=== PATIENT | female | born 1940 | race Caucasian/White ===

== ENCOUNTER 2017-01-20 14:20 | Inpatient (IN) | payer MEDICARE ==
[~2017-01-20] VITALS: Ht 162.6 cm; Wt 76.5 kg
[~2017-01-20 14:20] MED LIST: BAYER CHEWABLE81 MG PO; BIOTIN5 MG PO; CIMETIDINE200 MG PO; CO Q-10100 MG PO; COLACE100 MG PO; COLCRYS0.6 MG PO; HYDROCODONE-APA1 TAB PO; KLOR-CON 1010 MEQ PO; LOFIBRA134 MG PO; MOBIC7.5 MG PO; PRAVASTATIN SOD10 MG PO; PREDNISONE10 MG PO; PREDNISONE5 MG PO; PRILOSEC20 MG PO; PROZAC20 MG PO; VITAMIN B-122500 MCG SL; ZESTRIL40 MG PO; ZIAC 10-6.25 MG1 TAB PO; ZOVIRAX400 MG PO
--- NOTE | 2017-01-20 14:37 | NUR ---
PT RECIEVED TO ROOM. RR RATE EVEN AND UNLABORED. PT C/O GENERALIZED PAIN AT 10. FAMILY AT BEDSIDE. WILL CTM.
[2017-01-20 14:52] VITALS: BP 125/81; BMI 30.9
[2017-01-20 16:10] LABS: BASOPHILS 0.2 % (0-2); EOSINOPHILS 0.2 % (0-7); HEMATOCRIT 39.4 % (36.0-48.0); HEMOGLOBIN 13.3 g/dL (12-16); IMMATURE GRANULOCYTES 0.5 % (0-5); LYMPHOCYTES 12.2 % (15-50); MCH 28.7 pg (26.0-34.0); MCHC 33.8 g/dL (31.0-37.0); MCV 85.1 fL (80.0-100.0); MEAN PLATELET VOLUME 11.2 fL (7.4-10.4); NEUTROPHILS 78.9 % (40-80); PLATELET COUNT 382 10x3/uL (130-400); RBC 4.63 10x6/uL (4.00-5.40); RDW 14.5 % (11.5-14.5)
--- NOTE | 2017-01-20 16:32 | NUR ---
20 GUAGE IV INSERTED INTO RIGHT FOREARM, X1 STICK. DRESSING CLEAN, DRY, AND INTACT.
[2017-01-20 16:35] LABS: ALBUMIN 3.4 g/dL (3.4-5.0); ALKALINE PHOSPHATASE 139 U/L (46-116); ALT (SGPT) 22 U/L (10-68); BILIRUBIN - TOTAL 0.77 mg/dL (0.2-1.3); CALCIUM 9.6 mg/dL (8.5-10.1); CARBON DIOXIDE 31.3 mmol/L (21.0-32.0); CKMB 3.8 U/L (0.0-3.6); CREATINE KINASE 487 UL (21-215); CREATININE - SERUM 1.7 mg/dL (0.6-1.3); MAGNESIUM - SERUM 2.2 mg/dL (1.8-2.4); PROTEIN - SERUM 7.7 g/dL (6.4-8.2); SODIUM 128 mmol/L (136-145); T4 THYROXIN - FREE 1.23 ng/dL (0.76-1.46); THYROID STIMULATING HORMONE 0.62 uIU/mL (0.36-3.74); UREA NITROGEN 39 mg/dL (7-18); eGFR NON AFRICAN AMERICAN 31 mL/min (90-120)
[2017-01-20 16:41] LABS: CALC OSMOLALITY 299 mosm/kg (275-300); TROPONIN-I < 0.017 ng/mL (0.000-0.060)
[2017-01-20 16:45] LABS: GLUCOSE 710 mg/dL (74-106); POTASSIUM - SERUM 2.7 mmol/L (3.5-5.1)
[2017-01-20 16:46] LABS: CHLORIDE - SERUM 84 mmol/L (98-107)
[2017-01-20 16:51] VITALS: BP 111/58
--- NOTE | 2017-01-20 17:15 | NUR ---
CRITICAL LABS REPORTED. GLUCOSE OVER 700, POTASSIUM AT 2.7, CHOLRIDE AT 84. PT NOT SYMPTOMATIC EXPLAINS THAT SHE FEELS A LITTLE DIZZY WHEN SHE LOOKS UP. REPORTED LABS TO TONE YANG AND SHE ORDERED A RE-DRAW. WILL CTM.
--- NOTE | 2017-01-20 17:38 | NUR ---
PTS GLUCOSE RESULTED CH AT 710. I RECHECKED WITH ACCU CHECK BUT SUGAR TOO HIGH TO RESULT. CALLED TONE YUN, LYLY AND REC'D ORDERS FOR STAT REDRAW. PT SITTING UP IN BED EATING AND DENIES ANY WEIRD FEELINGS OR SYMPTOMS AND STATES "I FEEL NORMAL UNLESS I LOOK UP THEN DOWN TOO QUICK I GET DIZZY" NO OTHER SYMPTOMS NOTED. WILL CTM.
[2017-01-20 18:25] LABS: ANION GAP 17.8 mmol/L (8-16); CALCIUM 9.6 mg/dL (8.5-10.1); CREATININE - SERUM 1.5 mg/dL (0.6-1.3)
[2017-01-20 18:27] LABS: POTASSIUM - SERUM 2.8 mmol/L (3.5-5.1)
--- NOTE | 2017-01-20 18:30 | NUR ---
LABS STILL CRITICAL FROM RE-DRAW. GLUCOSE WAS OVER 600 AND K+ WAS 2.8. CONTACTED ROCKET MOTOR TESTER ABOUT LABS AND E-PROTOCOL ORDERED. ORAL POTASSIUM GIVEN, 1/2 NS STARTED AT 100ML/HR, INSULIN TO BE GIVEN WHEN ARRIVED TO UNIT FROM PHARMACY. PT STILL SHOWS NO SYMPTOMS OF HIGH BLOOD SUGAR. DENIES OTHER NEEDS AT THIS TIME. RR EVEN AND UNLABORED, WILL CTM.
[2017-01-20] MEDS ORDERED: OMEPRAZOLE20 M1 PO (18:48)
[2017-01-20] MEDS ORDERED: ZOLOFT50 MG PO (18:48)
[2017-01-20] MEDS ORDERED: LOPID600 MG PO (18:49)
[2017-01-20] MEDS ORDERED: FUROSEMIDE40 MG PO (18:50)
[2017-01-20] MEDS ORDERED: PLAVIX75 MG PO (18:51)
[2017-01-20] MEDS ORDERED: ENULOSE10 G/15 ML (18:51)
[2017-01-20] MEDS ORDERED: NEURONTIN 300300 MG (18:52)
[2017-01-20 19:00] VITALS: BP 123/74
[2017-01-20 19:02] LABS: APPEARANCE CLEAR (CLEAR); BILIRUBIN NEGATIVE (NEGATIVE); COLOR YELLOW (YELLOW); GLUCOSE 1000 mg/dL (NEGATIVE); KETONE NEGATIVE (NEGATIVE); LEUKOCYTE ESTERASE 1+ (NEGATIVE); NITRITE NEGATIVE (NEGATIVE); PROTEIN NEGATIVE (NEGATIVE); SPECIFIC GRAVITY 1.015 (1.005-1.020); UROBILINOGEN NORMAL (NORMAL)
[2017-01-20 19:03] LABS: WHITE CELLS - URINE 25-50 /hpf (0-5)
[2017-01-20 19:04] LABS: BACTERIA FEW /hpf (NONE SEEN); EPITHELIAL CELLS 0-5 /hpf (0-5)
[2017-01-20 19:15] LABS: HEMOGLOBIN A1C 10.9 % (4.8-6.0)
--- NOTE | 2017-01-20 19:22 | NUR ---
PT AWAKE, ALERT, ORIENTED, SITTING ON SIDE OF BED EATING A TURKEY SANDWICH AND GRAPES. FSBS WHEN CHECKED BY GLUCOMETER WOULD NOT READ R/T HOW HIGH HER GLUCOSE IS AT THIS TIME. PT RECEIVED 20 UNITS OF HUMALOG AND I WILL RECHECK FSBS DURING 21:00 MED PASS AND SOONER PRN. PT DENIES ANY NEEDS. CONTINUE TO MONITOR CLOSELY.
--- NOTE | 2017-01-20 20:44 | NUR ---
FSBS VIA GLUCOMETER STILL TOO HI TO REGISTER. WILL HAVE STAT LAB DRAWN AND CONTACT PHYSICIAN. PT DENIES ANY PAIN OR NEEDS AT THIS TIME. CONTINUE TO MONITOR CLOSELY.
--- NOTE | 2017-01-20 22:28 | NUR ---
PT IS C/O DIARRHEA THAT STARTED AROUND LAST NIGHT AND HAS CONTINUED THROUGHOUT THE DAY TODAY. PT IS REQUESTING SOMETHING PRN FOR IT. PT REMAINS AWAKE, ALERT, ORIENTED. CONTINUE TO MONITOR CLOSELY.
[2017-01-20 22:36] LABS: CKMB 1.9 U/L (0.0-3.6)
[2017-01-20 22:37] LABS: CREATINE KINASE 244 UL (21-215); GLUCOSE 658 mg/dL (74-106); TROPONIN-I < 0.017 ng/mL (0.000-0.060)
--- NOTE | 2017-01-20 23:15 | NUR ---
PT REMAINS AWAKE, ALERT, ORIENTED, STILL C/O DIARRHEA AND HER BOTTOM BECOMING RAW. I DID GIVE PT A TUBE OF BUTT PASTE. ALSO I HAVE STARTED IV POTASSIUM PER ELECTROLYTE PROTOCOL. I HAVE DISCUSSED WITH PT THE NEED FOR A STOOL SAMPLE R/T HER DIARRHEA. WILL CONTINUE TO MONITOR CLOSELY.
[2017-01-21] VITALS: BP 114/64
--- NOTE | 2017-01-21 00:03 | NUR ---
AFTER REVIEWING PTS CHART, PT DOES TAKE LACTULOSE PRN CONSTIPATION BUT DENIES ANY RECENT USE. WILL STILL COLLECT THE STOOL AND CONTINUE TO MONITOR PT CLOSELY.
--- NOTE | 2017-01-21 01:37 | NUR ---
HAVE SPOKEN WITH MACARONI MAKER, JUAN HU RN, ABOUT CONTACTING PHYSICIAN PLANT ELECTRICIAN FOR FURTHER ORDERS R/T INCREASED GLUCOSE. WAITING FOR A RESPONSE. CONTINUE TO MONITOR CLOSELY.
[2017-01-21 04:00] VITALS: BP 114/57
--- NOTE | 2017-01-21 04:20 | NUR ---
PT HAS HAD RECURRENT DIARRHEA, INCLUDING 1 BOWEL ACCIDENT WHILE SLEEPING. CDT NEGATIVE. PT DOES TAKE LACTULOSE PRN CONSTIPATION. CONTINUE TO MONITOR CLOSELY.
[2017-01-21 04:44] LABS: BASOPHILS 0.1 % (0-2); EOSINOPHILS 0.1 % (0-7); HEMOGLOBIN 13.3 g/dL (12-16); IMMATURE GRANULOCYTES 0.6 % (0-5); LYMPHOCYTES 7.6 % (15-50); MCH 28.7 pg (26.0-34.0); MCHC 34.1 g/dL (31.0-37.0); MCV 84.1 fL (80.0-100.0); MEAN PLATELET VOLUME 11.1 fL (7.4-10.4); MONOCYTES 6.5 % (2-11); NEUTROPHILS 85.1 % (40-80); PLATELET COUNT 389 10x3/uL (130-400); RBC 4.64 10x6/uL (4.00-5.40); RDW 14.3 % (11.5-14.5); WBC 10.4 10x3/uL (4.8-10.8)
[2017-01-21 05:06] LABS: ALKALINE PHOSPHATASE 131 U/L (46-116); ALT (SGPT) 20 U/L (10-68); BILIRUBIN - TOTAL 0.54 mg/dL (0.2-1.3); CALCIUM 9.5 mg/dL (8.5-10.1); CARBON DIOXIDE 26.6 mmol/L (21.0-32.0); CHLORIDE - SERUM 92 mmol/L (98-107); CKMB 1.9 U/L (0.0-3.6); CREATINE KINASE 218 UL (21-215); CREATININE - SERUM 1.4 mg/dL (0.6-1.3); PROTEIN - SERUM 8.1 g/dL (6.4-8.2); SODIUM 131 mmol/L (136-145); UREA NITROGEN 38 mg/dL (7-18); eGFR NON AFRICAN AMERICAN 39 mL/min (90-120)
[2017-01-21 05:08] LABS: CALC OSMOLALITY 291 mosm/kg (275-300)
[2017-01-21 05:09] LABS: GLUCOSE 452 mg/dL (74-106); POTASSIUM - SERUM 2.8 mmol/L (3.5-5.1); TROPONIN-I < 0.017 ng/mL (0.000-0.060)
--- NOTE | 2017-01-21 07:05 | NUR ---
RECEIVED REPORT. ASSUMED CARE OF PATIENT. CALL LIGHT WITHIN REACH. PATIENT UP AMBULATING IN ROOM. RESP EVEN AND UNLABORED. BAG #3 OF K+ RIDER INFUSING AT THIS TIME. DENIES NEEDS. NO DISTRESS.
[2017-01-21 08:23] VITALS: BP 96/54
--- NOTE | 2017-01-21 08:35 | NUR ---
K+ RIDER #4 INFUSING AT THIS TIME. NO DISTRESS.
--- NOTE | 2017-01-21 09:50 | NUR ---
CALLED PHARMACY AT 0900 AND SPOKE TO HARRY AND INFORMED HIM THAT ZIAC IS NOT AVAILABLE AND HE STATED THEY WOULD BE BRINGING IT UP. ZIAC IS STILL NOT AVAILABLE AT THIS TIME.
--- NOTE | 2017-01-21 10:22 | NUR ---
ZIAC CONTINUES TO NOT BE AVAILABLE. CALLED AND SPOKE TO HARRY AGAIN AND WAS TOLD THEY HAVE TO UNIT DOSE THE MEDICATION AND THAT THE MEDICATION IS STILL IN THE BOTTLES.
--- NOTE | 2017-01-21 11:49 | NUR ---
FSBS 235. 12 UNITS INSULIN ADMINISTERED PER SLIDING SCALE. NO DISTRESS. CONSUMING NOON MEAL AT THIS TIME.
--- NOTE | 2017-01-21 12:15 | NUR ---
1200 SPOKE WITH DORENE AND INFORMED HIM THAT THIS NURSE IS STILL WAITING ON ZIAC THAT HAS BEEN REQUESTED TWICE SINCE 0900 THIS AM AND THE MEDICATION IS STILL NOT AVAILABLE. DORENE STATES THEY WILL GET IT UP HERE.
--- NOTE | 2017-01-21 12:22 | NUR ---
FSBS 441. CHELSEA WAYNE NOTIFIED AND 20 UNITS INSULIN ADMINISTERED ORDERED. PATIENT SITTING TO SIDE OF BED CONSUMING NOON MEAL. NO DISTRESS.
--- NOTE | 2017-01-21 12:35 | NUR ---
Patient Name: VENITA CALDWELL Admission Status: Urgent Accout number: [id number] Admission Date: 01-20-2017 : 1940 Admission Diagnosis: Attending: GERI Current LOS: 1 Anticipated DC Date: Planned Disposition: Home Primary Insurance: [employer] CHOICE PPO MCR ADVANT Discharge Planning Comments: * Is the patient Alert and Oriented? Yes 0 * How many steps to enter\exit or inside your home? NONE 0 * PCP DR. WALTERS 0 * Pharmacy [facility] [address] 0 * Preadmission Environment Home Alone 0 * ADLs Independent 0 * Equipment Cane CPAP Walker 0 * Other Equipment CPAP FROM [facility] (WOULD PREFER NOT TO USE) NO MEDICAL EQUIPMENT PROVIDER PREFERENCE 0 * List name and contact numbers for known caregivers / representatives who currently or will assist patient after discharge: ZOHREH WRIGHT, DAUGHTER, 0 * Community resources currently utilized None 0 * Please name any agencies selected above. NONE 0 * Additional services required to return to the preadmission environment? No 0 * Can the patient safely return to the preadmission environment? Yes 0 * Has this patient been hospitalized within the prior 30 days at any hospital? No 0 CM MET WITH PT AND HER SISTER IN ROOM TO DISCUSS DISCHARGE PLANNING AND NEEDS. PT REPORTS LIVING AT HOME INDEPENDENTLY WITH HER TWO LITTLE DOGS. PT HAS CPAP FROM [facility] AND WOULD NOT LIKE TO USE THEM IN THE FUTURE; PT ALSO HAS CANE AND WALKER THAT SHE DOES NOT USE. PT HAS NO OUTSIDE SERVICES ASSISTING IN THE HOME. CM DISCUSSED AVAILABILITY OF HOME HEALTH, REHAB SERVICES AND MEDICAL EQUIPMENT. PT DENIES DISCHARGE NEEDS AT THIS TIME, REPORTS HER FAMILY WILL PICK HER UP FOR DISCHARGE HOME. CM PROVIDED CM CONTACT INFORMATION IF NEEDED. PT PLANS TO DISCHARGE HOME ALONE, NO DISCHARGE NEEDS ANTICIPATED AT THIS TIME. CM TO FOLLOW AND ASSIST NEEDED. Java User Interface Developer: Gael Becerra
[2017-01-21 12:40] VITALS: BP 117/71
--- NOTE | 2017-01-21 13:43 | NUR ---
SPOKE TO AND INFORMED HER THAT PATIENTS POTASSIUM IS 2.4, POTASSIUM HAS DROPPED HAVE ADMINISTERING 4 KCL RIDERS AND ORAL K+. ORDERS RECEIVED TO STOP THE PO LASIX AND CONTINUE THE ELECTROLYTE PROTOCOL FOR POTASSIUM RIDERS.
--- NOTE | 2017-01-21 13:54 | NUR ---
ORAL K+ DOSE #1 GIVEN AT THIS TIME.
--- NOTE | 2017-01-21 14:45 | NUR ---
SOLAR PROCESS ENGINEER CALLED TO QUESTION ALL TREATMENTS CURRENTLY BEING RENDERED TO PATIENT DUE TO PATIENTS FRIEND, DESIREE WHICH IS EX SOLAR PROCESS ENGINEER FOR [facility], CALLED SOLAR PROCESS ENGINEER TO QUESTION THE TREATMENT BEING RENDERED TO PATIENT. THIS SOLAR PROCESS ENGINEER INFORMED HIM THAT I HAVE SPOKE TO THE SOCIAL MEDIA SENIOR ASSOCIATE AND MD MULTIPLE TIME ABOUT THIS PATIENT AND JUST RECEIVED TELEPHONE ORDERS 30 MINUTES AGO FROM IN REGARDS TO THIS PATIENT. I AM DOING EVERYTHING I CAN FOR THIS PATIENT. I CAN NOT DO MORE WITHOUT ORDERS THAT I DO NOT HAVE. MD AND SOCIAL MEDIA SENIOR ASSOCIATE ARE AWARE OF ALL CURRENT ISSUES THIS PATEINT IS EXPERIENCING. SOLAR PROCESS ENGINEER THANKED ME FOR THE INFORMATION AND HE WILL CALL THE FRIEND BACK AND REINFORCE THE ORDERS FROM THE MD.
--- NOTE | 2017-01-21 15:03 | NUR ---
PT LEFT UNIT AT THIS TIME FOR MRI. NO DISTRESS UPON LEAVING UNIT.
--- NOTE | 2017-01-21 15:46 | NUR ---
MRI DONE WITHOUT CONTRAST. PATIENT REFUSED CONTRAST SINCE GFR WAS 39.
--- NOTE | 2017-01-21 15:56 | NUR ---
ORAL POTASSIUM SUPPLEMENT #2 ADMINISTERED PER ELECTROLYTE PROTOCOL AT THIS TIME. NO DISTRESS.
--- NOTE | 2017-01-21 16:15 | NUR ---
FSBS 355. 16 UNITS HUMALOG ADMINISTERED PER SLIDING SCALE AT THIS TIME. ASSURED FAMILY AGAIN THAT PATIENT IS ON ADA DIET. NO DISTRESS.
[2017-01-21 19:00] VITALS: BP 115/68
--- NOTE | 2017-01-21 19:20 | NUR ---
PT IN ROOM WITH FAMILY MEMBER AT BEDSIDE. PT DENIES ANY NEEDS. NO S/S OF DISTRESS. WILL CONTINUE TO MONITOR
--- NOTE | 2017-01-21 20:26 | NUR ---
PT/FAMILY REQUESTING RX FOR HEADACHE/PAIN, TONE YUN PAGED. OK TO RESTART PTS HOME MED OF NORCO 5MG 1 PO Q 4 HOUR PRN PAIN. CONTINUE TO MONITOR CLOSELY.
--- NOTE | 2017-01-21 20:48 | NUR ---
PT C/O HEADACHE. HOME MEDS RESTARTED FOR PAIN BUT PT REFUSES NORCO. SHE ONLY TAKES NORCO WHEN IN 8-10/10 PAIN. DOES NOT TAKE NORCO FOR HEADACHE. TONE RONQUILLO AND TYLENOL 500MG Q6H PRN ORDERED. WILL CONTINUE TO MONITOR PT
[2017-01-22] VITALS: BP 115/64
--- NOTE | 2017-01-22 01:19 | NUR ---
PT IN ROOM SLEEPING. PT IS HARD TO AROUSE. PT WAKES UP TO PHYSICAL STIMULI. NO S/S OF DISTRESS. RESPIRATIONS EVEN AND UNLABORED. WILL CONTINUE TO MONITOR
[2017-01-22 04:00] VITALS: BP 107/53
--- NOTE | 2017-01-22 05:01 | NUR ---
PT SLEEPING. RESPIRATIONS EVEN AND UNLABORED. NO S/S OF DISTRESS, WILL CONTINUE TO MONITOR
[2017-01-22 05:39] LABS: BASOPHILS 0.4 % (0-2); EOSINOPHILS 3.4 % (0-7); HEMATOCRIT 35.4 % (36.0-48.0); HEMOGLOBIN 11.9 g/dL (12-16); IMMATURE GRANULOCYTES 0.6 % (0-5); LYMPHOCYTES 13.3 % (15-50); MCH 28.7 pg (26.0-34.0); MCHC 33.6 g/dL (31.0-37.0); MCV 85.3 fL (80.0-100.0); MEAN PLATELET VOLUME 10.9 fL (7.4-10.4); MONOCYTES 7.8 % (2-11); NEUTROPHILS 74.5 % (40-80); RBC 4.15 10x6/uL (4.00-5.40); RDW 14.6 % (11.5-14.5)
[2017-01-22 05:42] LABS: PLATELET COUNT 296 10x3/uL (130-400); WBC 6.8 10x3/uL (4.8-10.8)
[2017-01-22 05:53] LABS: ALBUMIN 2.4 g/dL (3.4-5.0); ANION GAP 12.9 mmol/L (8-16); BILIRUBIN - TOTAL 0.4 mg/dL (0.2-1.3); CALCIUM 8.7 mg/dL (8.5-10.1); CARBON DIOXIDE 25.3 mmol/L (21.0-32.0); CREATININE - SERUM 1.2 mg/dL (0.6-1.3); PROTEIN - SERUM 6.4 g/dL (6.4-8.2)
[2017-01-22 06:05] LABS: POTASSIUM - SERUM 3.2 mmol/L (3.5-5.1)
--- NOTE | 2017-01-22 06:34 | NUR ---
PT STATES THAT THERE WAS BLOOD IN HER URINE. UA COLLECTED ON THE 3RD POSTIVE FOR BLOOD. WILL PASS ON IN REPORT
[2017-01-22 08:00] VITALS: BP 103/69
--- NOTE | 2017-01-22 08:01 | NUR ---
AM ROUNDING- RECEIVED REPORT FROM ENGINEERING GROUP LEADER NURSE ANCA. PT IS CURRENTLY LAYING IN BED ON BACK WITH EYES OPEN RESTING. ON ROOM AIR. NOT ON MONITOR CURRENTLY. IV SEEN TO RIGHT FOREARM WITH 1/2 NS RUNNING AT 100CC. NO NEED AT CURRENT TIME. WILL CONTINUE TO MONITOR AND CONTINUE WITH PLAN OF CARE.
--- NOTE | 2017-01-22 09:13 | NUR ---
CALLED INTO PTS ROOM FOR PTS IV "BLEEDING". WENT TO CHECK ON PT AND IV CATHETER IS OUT OF RIGHT HAND WITH CATH TIP INTACT. SITE IS BLEEDING. PRESSURE HELD ON SITE. COVERED SITE WITH 2X2 GAUZE PADS AND SECURED WITH TAPE. WILL ATTEMPT TO RESITE PT WITH IV CATHETER.
--- NOTE | 2017-01-22 10:48 | NUR ---
STUDENT NURSE AND INSTRUCTOR (MR. LAW) INSERTED IV CATHETER X2 STICK TO RIGHT FOREARM. WILL RESTART IV FLUIDS ORDERED. WILL CONTINUE TO MONITOR.
[2017-01-22 12:00] VITALS: BP 102/53
[2017-01-22 12:40] VITALS: Ht 162.6 cm; Wt 76.5 kg
[2017-01-22 16:00] VITALS: BP 108/60
--- NOTE | 2017-01-22 17:08 | NUR ---
PT IS CURRENTLY IN BATHROOM. GUEST AT BEDSIDE. PT DENIES ANY NEED AT CURRENT TIME. WILL CONTINUE TO MONITOR.
[2017-01-22 19:00] VITALS: BP 147/86
--- NOTE | 2017-01-22 19:40 | NUR ---
PT RESTING IN BED. DENIES ANY NEEDS. NO S/S OF DISTRESS. WILL CONTINUE TO MONITOR
[2017-01-23] VITALS: BP 136/74
--- NOTE | 2017-01-23 03:11 | NUR ---
PT SLEEPING ON BACK RESPIRATIONS EVEN AND UNLABORED. 1/2 NS UNFUSING TO RIGHT ARM IV. NO S/S OF DISTRESS. WILL CONTINUE TO MONITOR
[2017-01-23 04:34] VITALS: BP 130/68
[2017-01-23 05:59] LABS: BASOPHILS 0.4 % (0-2); EOSINOPHILS 3.2 % (0-7); HEMATOCRIT 36.2 % (36.0-48.0); HEMOGLOBIN 11.9 g/dL (12-16); IMMATURE GRANULOCYTES 1.3 % (0-5); MCH 28.3 pg (26.0-34.0); MCHC 32.9 g/dL (31.0-37.0); MONOCYTES 8.8 % (2-11); NEUTROPHILS 67.3 % (40-80); PLATELET COUNT 298 10x3/uL (130-400); RBC 4.21 10x6/uL (4.00-5.40); RDW 14.9 % (11.5-14.5)
[2017-01-23 06:03] LABS: WBC 4.7 10x3/uL (4.8-10.8)
[2017-01-23 06:20] LABS: ALBUMIN 2.4 g/dL (3.4-5.0); ANION GAP 12.6 mmol/L (8-16); BILIRUBIN - TOTAL 0.22 mg/dL (0.2-1.3); CALCIUM 9.5 mg/dL (8.5-10.1); CARBON DIOXIDE 24.5 mmol/L (21.0-32.0); POTASSIUM - SERUM 3.1 mmol/L (3.5-5.1); PROTEIN - SERUM 6.3 g/dL (6.4-8.2)
--- NOTE | 2017-01-23 07:01 | NUR ---
PT RESTING IN BED. INFORMED PT MY SHIFT IS OVER. PT DENIES ANY NEEDS
--- NOTE | 2017-01-23 07:42 | NUR ---
AM ROUNDING DONE WITH PAIN OF SORE THROAT /. PATIENT CAN NOT EXPLAINED WHY HER THROAT IS SORE AND HAS NOT TOLD THE DOCTOR. ON HEAR MONITOR SHOWING SR, HR 76. ON ROOM AIR. RIGHT FA SEEN WITH 1/2 NS INFUSING AT 100 CC/HR. ON EP, K+ BEEN COVERED. WILL WATCH FOR RE-DRAW.
[2017-01-23 08:19] VITALS: BP 125/71
--- NOTE | 2017-01-23 11:01 | NUR ---
K+ RE-DRAW WITH RESULTS OF 3.9
[2017-01-23 12:06] VITALS: BP 113/72
[2017-01-23] MEDS ORDERED: LEVAQUIN500 MG PO (13:32)
[2017-01-23] MEDS ORDERED: LANTUS SOL100 UNIT/1 SC ×2 (13:36→14:42)
[2017-01-23] MEDS ORDERED: KLOR-CON 1010 MEQ PO (13:39)
[2017-01-23] MEDS ORDERED: FLORAJEN3 CAPS460 MG PO (13:39)
[2017-01-23 15:47] VITALS: BP 117/68
--- NOTE | 2017-01-23 16:39 | NUR ---
Patient Name: VENITA CALDWELL Encounter No: [id number] : 1940 Primary Insurance: [employer] CHOICE PPO MCR ADVANT Anticipated DC Date: 01-23-2017 Planned Disposition: Home DCP follow-up note: CM RECEIVED DISCHARGE ORDER, MET WITH PT IN ROOM TO DISCUSS DISCHARGE NEEDS AND PLANNING. CM DISCUSSED AVAILABILITY OF HOME HEALTH, REHAB SERVICES AND MEDICAL EQUIPMENT. PT DENIES DISCHARGE NEEDS. FAMILY TO TRANSPORT HOME AT DISCHARGE TODAY. IMPORTANT MESSAGE FROM MEDICARE PROVIDED AND EXPLAINED. Gael Becerra, CASE MANAGEMENT
--- NOTE | 2017-01-23 17:32 | NUR ---
1726-VERBAL AND WRITTEN DISCHARGE INSTRUCTIONS GIVEN TO PATIENT AND FEMALE FAMILY MEMBER. SALINE LOCK REMOVED WITH CATH TIP INTACT. DISCHARGED HOME VIA WHEELCHAIR.
== END 2017-01-23 17:37 | disposition home or self-care (01) | DRG 637 ==
LOC: D.M2 14:20
PROVIDERS: Emergency Medicine; ADMIT Family Medicine
DX: E11.65 Type 2 diabetes mellitus with hyperglycemia (principal); G93.41 Metabolic encephalopathy; N39.0 Urinary tract infection, site not specified; R41.3 Other amnesia; E78.5 Hyperlipidemia, unspecified; M10.9 Gout, unspecified; I25.10 Atherosclerotic heart disease of native coronary artery without angina pectoris; Z95.1 Presence of aortocoronary bypass graft; E87.6 Hypokalemia

== ENCOUNTER → 2017-02-12 20:55 | Outpatient (CLI) | payer MEDICARE ==
[2017-01-22 12:40] VITALS: BMI 28.3
[~2017-02-12 20:55] MED LIST changes: +ENULOSE10 G/15 ML; +FLORAJEN3 CAPS460 MG PO; +FUROSEMIDE40 MG PO; +LANTUS SOL100 UNIT/1 SC; +LEVAQUIN500 MG PO; +LOPID600 MG PO; +NEURONTIN 300300 MG; +OMEPRAZOLE20 M1 PO; +PLAVIX75 MG PO; +ZOLOFT50 MG PO
== END | disposition home or self-care (01) ==
LOC: D.LABREF 20:55
DX: M17.11 Unilateral primary osteoarthritis, right knee (principal); Z11.8 Encounter for screening for other infectious and parasitic diseases

== ENCOUNTER 2017-04-02 10:00 | Inpatient (IN) | payer MEDICARE ==
[~2017-04-02] VITALS: Ht 162.6 cm; Wt 75.5 kg
[2017-04-02] MEDS ORDERED: K-DUR20 MEQ PO (10:50)
[2017-04-02 11:40] LABS: BASOPHILS 0.7 % (0-2); HEMOGLOBIN 10.8 g/dL (12-16); LYMPHOCYTES 20.6 % (15-50); MCH 24.5 pg (26.0-34.0); MCHC 30.9 g/dL (31.0-37.0); MCV 79.5 fL (80.0-100.0); MEAN PLATELET VOLUME 9.8 fL (7.4-10.4); MONOCYTES 15.7 % (2-11); PLATELET COUNT 340 10x3/uL (130-400); RDW 14.6 % (11.5-14.5)
[2017-04-02 11:50] LABS: ANION GAP 13.1 mmol/L (8-16); CALCIUM 9.6 mg/dL (8.5-10.1); CARBON DIOXIDE 29.3 mmol/L (21.0-32.0); CREATININE - SERUM 1.3 mg/dL (0.6-1.3)
[2017-04-02 11:52] LABS: APPEARANCE CLEAR (CLEAR); COLOR YELLOW (YELLOW); LEUKOCYTE ESTERASE NEGATIVE (NEGATIVE); NITRITE NEGATIVE (NEGATIVE); SPECIFIC GRAVITY 1.015 (1.005-1.020)
[2017-04-02 11:53] LABS: BILIRUBIN NEGATIVE (NEGATIVE); GLUCOSE 500 mg/dL (NEGATIVE); KETONE NEGATIVE (NEGATIVE); PROTEIN NEGATIVE (NEGATIVE); UROBILINOGEN NORMAL (NORMAL)
[2017-04-02 11:53] LABS: POTASSIUM - SERUM 2.4 mmol/L (3.5-5.1)
[2017-04-02 11:57] LABS: APTT 37.5 SECONDS (22.8-39.4)
[2017-04-07] VITALS (8 sets, daily range): BP systolic 108–125; BP diastolic 58–67; Ht 162.6 cm; Wt 75.5 kg
--- NOTE | 2017-04-07 13:40 | NUR ---
RECEIVED TO ROOM 2209 VIA BED FROM PACU. FAMILY AT BEDSIDE. VERY SLEEPY BUT ROUSES TO VERBAL STIMULATION. DRESSING TO RIGHT KNEE DRY AND INTACT WITH ICE IN PLACE.
--- NOTE | 2017-04-07 14:47 | OP ---
PATIENT NAME: VENITA CALDWELL MEDICAL RECORD: [id number] :[birth year] LOCATION:[id number] ADMISSION DATE:04/07/17 SURGEON: MUMTAZ PAYAN MD DATE OF OPERATION: 04/07/2017 PREOPERATIVE DIAGNOSIS: Degenerative arthritis of the right knee. POSTOPERATIVE DIAGNOSIS: Degenerative arthritis of the right knee. PROCEDURE: Right total knee arthroplasty. SURGEON: Mumtaz Payan MD ANESTHESIA: General. INTRAOPERATIVE COMPLICATIONS: None. SUMMARY OF PATHOLOGIC FINDINGS: Extensive osteoarthritis tricompartmentally. IMPLANTS USED: Arthrex iBalance system, size 5 distal femur, non-polyethylene insert, 4 tibial baseplate, 30 patellar component all cemented. OPERATIVE SUMMARY IN DETAIL: After obtaining the appropriate preoperative orthopedic surgery consent as well as anesthetic consultation, evaluation and clearance, the patient was brought to the operating room and placed on the operating table in supine position. After general laryngeal mask was administered, tourniquet was placed about the proximal aspect of the right lower extremity. Right lower extremity was prepped and draped in routine sterile fashion. The leg was elevated and exsanguinated, tourniquet inflated to 350 mmHg. Midline incision was taken down for paramedian arthrotomy. Patella was everted, distal femur was exposed. Soft tissue excision was done in the usual fashion. Distal femoral intramedullary guide hole was created for distal femoral cutting in 5 degrees. This was then followed by complete exposure of the proximal tibia. Further soft tissue excision was followed by creation of an intramedullary guide hole for proximal tibial cutting. Proximal tibia was cut as well. Measurements were taken. Distal femoral chamfer cuts were made. This was followed by insertion of the trial prosthesis corresponding to the above final implants. Final distal femoral and proximal tibial preparations were then followed by excision of the arthritic articular surface of the patella and patella was made ready for final implantation. Pulsatile lavage was used to clear the knee cavity of all debris. Bony ends were dried and final components were cemented into place. All excess cement was removed and cement was allowed to harden. Knee was taken through a range of motion and found to be stable in all planes. Paramedian arthrotomy was closed with #2 Ethibond followed by #1 Vicryl, 2-0 Vicryl and skin ely. Sterile dressings were applied. The patient was awakened, taken to recovery room in stable condition. All final needle and sponge counts were correct. TRANSINT:[id number] Voice Confirmation ID: [id number] DOCUMENT ID: [id number] OPERATIVE REPORT [id number] VENITA CALDWELL MD, MUMTAZ WILDER at 1447 CC: [id number] DICTATION DATE: 04/07/17 1239 RETAIL LEADER: 04/07/17 1255 ADM IN [place] [id number] [place] [address]
--- NOTE | 2017-04-07 18:48 | NUR ---
ATE ABOUT HALF OF SUPPER. HAD AN INCONTINENT EPISODE. CLOTHES CHANGED AND LINENS CHANGED. SKIN CARE PER SELF.
--- NOTE | 2017-04-07 19:07 | NUR ---
PT DAUGHTER ABIEL IN ROOM WITH PT, ASKED TO ASSIST WITH CPAP WHEN PT IS READY FOR SLEEP, PT STATED NO PAIN AT THIS TIME. BED IN LOW POSITION CALL LIGHT IN REACH
--- NOTE | 2017-04-07 21:26 | NUR ---
PT LYING IN BED, WHILE SCANNING MEDS PT REQUESTED TO BE PLACED ON BED GUERRERO, ASSISTED PT ON BED GUERRERO AND RESUMED SCANNING MEDS. AFTER GIVING PT MEDS GOT PT OFF BED GUERRERO AND ASSITED IN GETTING HER CLEANED UP, PT VERY PERSISTANT ON CLEANING HERSELF UP. BED IN LOW POSITION CALL LIGHT IN REACH
--- NOTE | 2017-04-07 22:16 | NUR ---
DUANE BROOKS CAME AND ADVISED ME PT IS VERY UPSET AND WANTED TO TALK TO BORDER MEASURER ON DUTY, PT STATED WAS LEFT TO CLEAN SELF UP AND NURSE NEVER RETURNED. ADVISED PT I HAD MORE THAN ONE PT THIS EVENING BUT HAD AIDES TO ASSIST HER WITH OTHER NEEDS IF NECESSARY. APOLOGIZED FOR MISUNDERSTANDING WITH CLEANING PT UP. BED IN LOW POSITION CALL LIGHT IN REACH, REMINDED PT TO STAY IN BED DUE TO TOTAL RT KNEE JUST DONE.
--- NOTE | 2017-04-08 01:31 | NUR ---
PATIENT ACCIDENTALLY PULLED HER IV OUT. RESITED THE PATIENT'S IV IN THE RIGHT WRIST ON THE THIRD ATTEMPT.
--- NOTE | 2017-04-08 01:56 | NUR ---
PT TRYING TO GET OUT OF BED STATED VERY FRUSTRATED AND SHE SHOULD BE ABLE TO GET UP IF SHE WANTS TO. REMINDED PT SHE JUST HAD KNEE SURGERY WHICH SHE STATED SHE IS AWARE OF AND NEEDED TO GET UP TO GET HER BAGS FROM CLOSET ADVISED HER WE WILL ASSIST IF SHE CALLS
--- NOTE | 2017-04-08 02:28 | NUR ---
PT ATTEMTEMPTED TO GET OUT OF BED AGAIN, STATED SHE NEEDED TO GO TO THE BATHROOM, PT HAD REMOVED HER EDDIE BANDAGE FROM KNEE, CHANGED LINEN ON PT BED AND ASSISTED ANGEL IN GETTING PT BACK IN BED ON BED GUERRERO. PT IS VERY FRUSTRATED AND STATED SHE CAN DO THIS HERSELF. ENSURED PT SHE WAS SAFE AND THAT WE WILL ASSIST. TURNED BED ALARM ON AND CALL LIGHT IN REACH.
[2017-04-08 04:00] VITALS: BP 107/54
--- NOTE | 2017-04-08 04:47 | NUR ---
PT BED ALARM OFF AGAIN, STATED SHE IS HUNGRY AND NEEDS TO ORDER FOOD, TOLD PT [facility] OPENS AT 0630 BUT CAN GET HER CRACKERS AND PEANUT BUTTER OR COFFEE OR WHAT SHE WOULD LIKE PT INSISTED ON CALLING [facility] TO MAKE SURE THEY KNEW SHE WAS HERE AND WHAT SHE WANTED TO EAT, PT STATED VERY FRUSTRATED WITH [facility] RULES AND POLICY AND WOULD LIKE TO SPEAK WITH PAPER COATER BURLAPPER. STATED SHE IS AN ADULT AND CAN GET UP IF SHE NEEDS TO. ADVISED HER MILK DRIVER IN AT 0700.
[2017-04-08 07:10] LABS: HEMATOCRIT 28.7 % (36.0-48.0); HEMOGLOBIN 8.5 g/dL (12-16); MCH 23.7 pg (26.0-34.0); MCHC 29.6 g/dL (31.0-37.0); MCV 80.2 fL (80.0-100.0); MEAN PLATELET VOLUME 9.6 fL (7.4-10.4); RBC 3.58 10x6/uL (4.00-5.40); WBC 9.5 10x3/uL (4.8-10.8)
--- NOTE | 2017-04-08 08:00 | NUR ---
AWAKE AND ALERT. ORIENTED TO SELF ONLY. ATTEMPTS PER STAFF TO REORIENT WITHOUT SUCCESS. LUNGS ARE CLEAR BILATERALLY, NO COUGH NOTED. REFUSED TO USE IS AT THIS TIME. WANTS TO GET UP AND GO EAT HER BREAKFAST. WILL MONITOR. SKIN IS INTACT WITHOUT REDNESS EXCEPT INCISION TO LEFT KNEE WHICH HAS A DRY INTACT DRESSING IN PLACE. CPM ON AT THIS TIME. REPOSITIONED IN BED FOR COMFORT. BREAKFAST SERVED IN ROOM. GIVEN ONE PERCOCET PO FOR C/O LEFT KNEE PAIN LEVEL 7. WILL MONITOR.
[2017-04-08 08:16] LABS: ANION GAP 15.7 mmol/L (8-16); CALCIUM 8.3 mg/dL (8.5-10.1); CARBON DIOXIDE 22.3 mmol/L (21.0-32.0)
[2017-04-08 08:31] VITALS: BP 110/59
--- NOTE | 2017-04-08 10:15 | NUR ---
AMBULATED IN HALLWAY WITH PT USING RW. REPORTS PAIN IMPROVED. DAUGHTER AT BEDSIDE.
--- NOTE | 2017-04-08 12:05 | NUR ---
FSBS 155. GIVEN 2 UNITS HUMULOG SUB Q PER SS.
--- NOTE | 2017-04-08 12:05 | NUR ---
C/O PAIN AT LEVEL 10 TO LEFT KNEE. GIVEN ONE PERCOCET PO FOR SAME. WILL MONITOR.
--- NOTE | 2017-04-08 12:30 | NUR ---
LUNCH SERVED IN ROOM. NOT EATING AT THIS TIME. VERY SLEEPY BUT ROUSES TO VERBAL STIMULATION. FAMILY AT BEDSIDE.
[2017-04-08 13:03] VITALS: BP 103/59
--- NOTE | 2017-04-08 17:00 | NUR ---
FSBS 160. GIVEN 2 UNITS HUMALOG SUBQ PER SS. SUPPER TRAY SERVED IN ROOM BUT NOT EATING AT THIS TIME.
[2017-04-08 19:00] VITALS: BP 105/50
--- NOTE | 2017-04-08 19:40 | NUR ---
PT IS LYING IN BED WITH HOB AT 35, PT DAUGHTER ABIEL AT BEDSIDE, CALL LIGHT IN REACH, NO SIGNS OF DISTRESS CONTINUE WITH CARE PLAN
[2017-04-09] VITALS: BP 128/50
--- NOTE | 2017-04-09 02:00 | NUR ---
PT IIN BED WITH NO DISTRESS. RESPIRATIONS EVEN AND UNLABORED. SIDE RAILS UP X 2. BED LOW. CALL LIGHT IN REACH.
[2017-04-09 04:00] VITALS: BP 110/49
[2017-04-09 05:36] LABS: HEMATOCRIT 27.4 % (36.0-48.0); HEMOGLOBIN 8.7 g/dL (12-16); MCH 24.2 pg (26.0-34.0); MCHC 31.8 g/dL (31.0-37.0); MEAN PLATELET VOLUME 9.4 fL (7.4-10.4); RBC 3.59 10x6/uL (4.00-5.40); RDW 15.2 % (11.5-14.5); WBC 9.1 10x3/uL (4.8-10.8)
[2017-04-09 05:49] LABS: MCV 76.3 fL (80.0-100.0)
--- NOTE | 2017-04-09 07:20 | NUR ---
PATIENT RECEIVED IN MID VALLES POSITION RESTING WITH EYES CLOSED. RESPIRATIONS EVEN AND UNLABORED. SIDE RAILS UP X2. BED IN LOW POSITION. CALL LIGHT IN REACH. BED ALARM ON.
[2017-04-09 08:26] VITALS: BP 111/58
--- NOTE | 2017-04-09 09:30 | NUR ---
PATIENT ALERT IN BED. NO SIGNS OF DISTRESS NOTED. DAUGHTER PRESENT. SCHEDULED MEDICATION ADMINISTERED WELL PRN NORCO. INCENTIVE SPIROMETER PROVIDED. DEMONSTRATES CORRECT USE. DENIES NEEDS. BED IN LOW POSITION. CALL LIGHT IN REACH.
--- NOTE | 2017-04-09 11:33 | NUR ---
ACCU CHECK 178. INSULIN PER SLIDING SCALE. FAMILY PRESENT. SIDE RAILS UP X2. BED IN LOW POSITION. CALL LIGHT IN REACH.
[2017-04-09] MEDS ORDERED: LANTUS SOL100 UNIT/1 SC (11:54)
[2017-04-09 13:08] VITALS: BP 107/48
--- NOTE | 2017-04-09 13:18 | NUR ---
Patient Name: VENITA CALDWELL Admission Status: Elective Accout number: [id number] Admission Date: 04-07-2017 : 1940 Admission Diagnosis:UNILATERAL PRIMARY OSTEOARTHRITIS, RIGHT KNEE Attending: MUMTAZ PAYAN Current LOS: 2 Anticipated DC Date: Planned Disposition: [facility] Facility Primary Insurance: [employer] CHOICE PPO MCR [facility] Discharge Planning Comments: CM met with patient and daughter (aayush) to assess discharge planning needs. Patient currently lives independently home alone. She has family, but they will not be able stay with the patient at all times. We discussed her options for therapy and the safest plan will be to go to a skilled facility till she is stronger to go home, both daughter and patient are agreeable to this plan. [facility]. Patient has a bedside commode, cane, walker, CPAP machine. There are not any steps to enter in her room. CM will continue to follow and assist with Discharge planning needs. PCP: Carri Pickard on [address] Aayush (daughter) [phone] Manufacturing Engineer Machining: Sydnie Victoria * Is the patient Alert and Oriented? Yes 0 * How many steps to enter\exit or inside your home? 0 0 * PCP carri 0 * Pharmacy [facility] * Preadmission Environment Home Alone 0 * ADLs Independent 0 * Equipment Bedside Commode Cane CPAP Rolling Walker 0 * List name and contact numbers for known caregivers / representatives who currently or will assist patient after discharge: AAYUSH (DAUGHTER) [phone] 0 * Community resources currently utilized None 0 * Additional services required to return to the preadmission environment? Yes 0 * Can the patient safely return to the preadmission environment? No 0 * Has this patient been hospitalized within the prior 30 days at any hospital? No 0 Grand Total: 0
--- NOTE | 2017-04-09 13:20 | NUR ---
PATIENT UP AMBULATING IN HALLWAY WITH PT. NO SIGNS OF DISTRESS NOTED.
--- NOTE | 2017-04-09 16:33 | NUR ---
PATIENT ALERT IN BED. NO SIGNS OF DISTRESS NOTED. ACCU CHECK 152. INSULIN PER SLIDING SCALE. NORCO ADMINISTERED PER PRN ORDER. SIDE RAILS UP X2. BED IN LOW POSITION. CALL LIGHT IN REACH.
[2017-04-09 17:40] VITALS: BP 122/59
[2017-04-09 19:00] VITALS: BP 113/58
--- NOTE | 2017-04-09 19:46 | NUR ---
PT IS LYING IN BED ON BACK EYES CLOSED WITH DEEP EVEN RISE AND FALL OF CHEST. PT DAUGHTER IS SITTING IN CHAIR NEXT TO PT, STATED PT HAS BEEN ASLEEP SINCE CPM MACHINE WAS PLACED ON, NO SIGNS OF DISTRESS WILL CONTINUE WITH CARE PLAN
--- NOTE | 2017-04-10 01:30 | NUR ---
PT WAS GIVEN NORCO AT 2200 AND STILL STATED IN SEVERE PAIN AT MIDNIGHT, EXPLAIN TO PT JUST GIVEN ONLY 2 HOURS AGO AND TOO EARLY FOR NEXT, PT HAD TYLENOL ON SEP OFFERED PT TO TRY THAT TO SEE IF WOULD HELP, PT AT 0130 STATED STILL IN SEVERE PAIN OFFERED TO GIVE PT ICE AND ASKED HER TO TRY AND REST TO ALLEVIATE PAIN. WILL CONTINUE TO MONITO PT PAIN LEVEL
[2017-04-10 04:00] VITALS: BP 108/57
--- NOTE | 2017-04-10 05:55 | NUR ---
ASSESSED, ASLEEP WITH NO DISTRESS NOTED OR REPIRATORY DISTRESS. EASY RESPIRATION AND REMAINED ASLEEP. THE BED IS LOW, RAILS UP X'S 2 WITH THE CALL LIGHT AT HAND.
[2017-04-10 06:00] LABS: HEMATOCRIT 28.9 % (36.0-48.0)
--- NOTE | 2017-04-10 07:50 | NUR ---
AWAKE AND ALERT WITH CALL LIGHT IN REACH. CPM AND BED ALARM ON. DENIES NEEDS AT PRESENT TIME. WILL CONTINUE WITH PLAN OF CARE.
[2017-04-10] MEDS ORDERED: ELIQUIS2.5 MG PO (08:06)
[2017-04-10] MEDS ORDERED: PERCOCET 10/3251 TA1 PO (08:10)
--- NOTE | 2017-04-10 08:45 | NUR ---
SCHEDULED MEDICATIONS ADMINISTERED AND PRN NORCO ADMINISTERED FOR PAIN. CALL LIGHT IN REACH, WILL CONTINUE WITH PLAN OF CARE.
[2017-04-10 09:46] VITALS: BP 119/60
--- NOTE | 2017-04-10 10:07 | NUR ---
PATIENT'S INSURANCE IS NOT ACCEPTED AT [facility] IS WAITING ON INSURANCE AUTH SPOKE WITH PATIENT AND HER DAUGHTER THEY ARE OK WITH [facility]
[2017-04-10 12:55] VITALS: BP 146/86
--- NOTE | 2017-04-10 13:12 | NUR ---
DRESSING TO RIGHT KNEE CHANGED PER ORDER.
--- NOTE | 2017-04-10 14:05 | NUR ---
REPORT CALLED TO [place] AT [facility], .PT TO BE PICKED UP AT 3PM.
--- NOTE | 2017-04-10 14:34 | NUR ---
PRN NORCO ADMINISTERED FOR PAIN AND ONE TIME DOSE OF LACTULOSE ADMINISTERED FOR CONSTIPATION AT THIS TIME.
--- NOTE | 2017-04-10 15:14 | NUR ---
D/C TO [facility] AT THIS TIME.
== END 2017-04-10 15:15 | DRG 470 ==
LOC: D.SDCHOLD 04-07 07:45 → D.MS 04-07 07:45 → D.SDCHOLD 04-07 10:00 → D.MS 04-07 13:14
PROVIDERS: Anesthesiology; ADMIT Orthopaedic Surgery
PROC: 0SRC0J9 Replacement of Right Knee Joint with Synthetic Substitute, Cemented, Open Approach (ICD-10-PCS; principal; 2017-04-07 10:00)
DX: M17.11 Unilateral primary osteoarthritis, right knee (principal); D62 Acute posthemorrhagic anemia; I10 Essential (primary) hypertension; Z95.1 Presence of aortocoronary bypass graft; I25.10 Atherosclerotic heart disease of native coronary artery without angina pectoris; E78.5 Hyperlipidemia, unspecified; M10.9 Gout, unspecified; Z87.891 Personal history of nicotine dependence; E11.65 Type 2 diabetes mellitus with hyperglycemia; Z79.4 Long term (current) use of insulin

== ENCOUNTER 2017-04-16 21:26 | Emergency (ER) | payer MEDICARE ==
[2017-04-07 13:31] VITALS: BMI 28.5
[~2017-04-16 21:26] MED LIST changes: +ELIQUIS2.5 MG PO; +K-DUR20 MEQ PO; +PERCOCET 10/3251 TA1 PO
[2017-04-16 22:54] LABS: ALBUMIN 2.2 g/dL (3.4-5.0); ANION GAP 12.1 mmol/L (8-16); BILIRUBIN - TOTAL 0.39 mg/dL (0.2-1.3); CALCIUM 9.2 mg/dL (8.5-10.1); CARBON DIOXIDE 31.5 mmol/L (21.0-32.0); CREATININE - SERUM 1.1 mg/dL (0.6-1.3)
[2017-04-16 22:58] LABS: POTASSIUM - SERUM 2.6 mmol/L (3.5-5.1)
== END 2017-04-16 23:42 | disposition home or self-care (01) ==
LOC: D.ER 21:26
PROVIDERS: Family Medicine
DX: E87.6 Hypokalemia (principal); R53.1 Weakness; E11.9 Type 2 diabetes mellitus without complications; Z79.4 Long term (current) use of insulin

== ENCOUNTER 2017-04-23 13:44 | Emergency (ER) | payer MEDICARE ==
[2017-04-07 13:31] VITALS: BMI 28.5
[2017-04-23 14:50] LABS: ALBUMIN 2.1 g/dL (3.4-5.0); ANION GAP 13.9 mmol/L (8-16); BILIRUBIN - TOTAL 0.61 mg/dL (0.2-1.3); CALCIUM 9.6 mg/dL (8.5-10.1); CARBON DIOXIDE 26.2 mmol/L (21.0-32.0); CREATININE - SERUM 0.9 mg/dL (0.6-1.3); POTASSIUM - SERUM 3.1 mmol/L (3.5-5.1); PROTEIN - SERUM 7.4 g/dL (6.4-8.2)
[2017-04-23 15:11] LABS: HEMATOCRIT 26.9 % (36.0-48.0); MCH 22.2 pg (26.0-34.0); MCHC 29.7 g/dL (31.0-37.0); MCV 74.7 fL (80.0-100.0); MEAN PLATELET VOLUME 9.3 fL (7.4-10.4); PLATELET COUNT 777 10x3/uL (130-400); WBC 21.5 10x3/uL (4.8-10.8)
[2017-04-23 16:07] LABS: LYMPHOCYTES 6 % (15-50); NEUTROPHILS 86 % (40-80)
[2017-04-23 16:08] LABS: PLATELET ESTIMATE INCREASED
[2017-04-23 16:15] LABS: APPEARANCE CLOUDY (CLEAR); BILIRUBIN NEGATIVE (NEGATIVE); COLOR YELLOW (YELLOW); GLUCOSE NEGATIVE (NEGATIVE); KETONE NEGATIVE (NEGATIVE); NITRITE POSITIVE (NEGATIVE); PROTEIN TRACE mg/dL (NEGATIVE); UROBILINOGEN NORMAL (NORMAL)
[2017-04-23 16:17] LABS: BACTERIA MANY /hpf (NONE SEEN); WHITE CELLS - URINE >50 /hpf (0-5)
== END 2017-04-23 19:14 | disposition home or self-care (01) ==
LOC: D.ER 13:44
PROVIDERS: Emergency Medicine
DX: N39.0 Urinary tract infection, site not specified (principal); E11.9 Type 2 diabetes mellitus without complications

== ENCOUNTER → 2018-01-14 14:32 | Outpatient (CLI) | payer MEDICARE ==
[2017-04-07 13:31] VITALS: BMI 28.5
[2018-01-14 14:45] LABS: BASOPHILS 0.2 % (0-2); EOSINOPHILS 0.3 % (0-7); HEMATOCRIT 42.3 % (36.0-48.0); HEMOGLOBIN 14.9 g/dL (12-16); IMMATURE GRANULOCYTES 0.3 % (0-5); LYMPHOCYTES 16.8 % (15-50); MCH 32.7 pg (26.0-34.0); MCHC 35.2 g/dL (31.0-37.0); MCV 92.8 fL (80.0-100.0); MEAN PLATELET VOLUME 10.9 fL (7.4-10.4); MONOCYTES 10.1 % (2-11); NEUTROPHILS 72.3 % (40-80); RBC 4.56 10x6/uL (4.00-5.40); RDW 13.3 % (11.5-14.5); WBC 8.6 10x3/uL (4.8-10.8)
[2018-01-14 14:50] LABS: PLATELET COUNT 265 10x3/uL (130-400)
[2018-01-14 15:49] LABS: ANION GAP 15.3 mmol/L (8-16); CALCIUM 9.3 mg/dL (8.5-10.1); CARBON DIOXIDE 28.4 mmol/L (21.0-32.0); CREATININE - SERUM 1.1 mg/dL (0.6-1.3); POTASSIUM - SERUM 3.7 mmol/L (3.5-5.1)
[2018-01-14 16:29] LABS: C-REACTIVE PROTEIN 25.2 mg/dL (0.0-0.9)
[2018-01-14 16:41] LABS: ERYTHROCYTE SEDIMENTATION RATE 35 mm/hr (0-30)
== END | disposition home or self-care (01) ==
LOC: D.LABREF 14:32
PROVIDERS: Orthopaedic Surgery
DX: L03.113 Cellulitis of right upper limb (principal)

== ENCOUNTER → 2019-06-10 09:29 | Outpatient (CLI) | payer MEDICARE ==
[2017-04-07 13:31] VITALS: BMI 28.5
== END | disposition home or self-care (01) ==
LOC: D.HCCECHO 06-01 13:00
PROVIDERS: ATTEND Internal Medicine Cardiovascular Disease
DX: I34.0 Nonrheumatic mitral (valve) insufficiency (principal)

== ENCOUNTER 2020-01-05 11:45 | Inpatient (IN) | payer OTHER ==
[~2020-01-05] VITALS: Ht 162.6 cm; Wt 81.6 kg
[2020-01-05 12:48] LABS: BASOPHILS 0 % (0-2); EOSINOPHILS 0 % (0-7); HEMATOCRIT 45.3 % (36.0-48.0); HEMOGLOBIN 15.5 g/dL (12-16); IMMATURE GRANULOCYTES 0.3 % (0-5); LYMPHOCYTES 6.5 % (15-50); MCH 32.2 pg (26.0-34.0); MCHC 34.2 g/dL (31.0-37.0); MEAN PLATELET VOLUME 10.9 fL (7.4-10.4); MONOCYTES 8.8 % (2-11); NEUTROPHILS 84.4 % (40-80); PLATELET COUNT 272 10x3/uL (130-400); RBC 4.82 10x6/uL (4.00-5.40); RDW 13.1 % (11.5-14.5)
[2020-01-05 13:11] LABS: INR 1.25 (0.85-1.17); PROTIME 15.6 SECONDS (11.6-15.0)
[2020-01-05 13:12] LABS: APTT 34.5 SECONDS (22.8-39.4)
[2020-01-05 13:15] LABS: ALBUMIN 3.4 g/dL (3.4-5.0); ALKALINE PHOSPHATASE 83 U/L (30-120); ALT (SGPT) 20 U/L (10-68); BILIRUBIN - TOTAL 1.93 mg/dL (0.2-1.3); CALCIUM 9.5 mg/dL (8.5-10.1); CARBON DIOXIDE 28.2 mmol/L (21.0-32.0); CHLORIDE - SERUM 107 mmol/L (98-107); CREATININE - SERUM 1.1 mg/dL (0.6-1.3); MAGNESIUM - SERUM 2.3 mg/dL (1.8-2.4); PROTEIN - SERUM 7.8 g/dL (6.4-8.2); SODIUM 147 mmol/L (136-145); THYROID STIMULATING HORMONE 0.39 uIU/mL (0.36-3.74); TROPONIN-I 0.019 ng/mL (0.000-0.060); UREA NITROGEN 31 mg/dL (7-18); eGFR NON AFRICAN AMERICAN 51 mL/min (90-120)
[2020-01-05 13:20] LABS: CALC OSMOLALITY 303 mosm/kg (275-300); CREATINE KINASE 1252 UL (21-215); GLUCOSE 180 mg/dL (74-106)
[2020-01-05 13:25] LABS: POTASSIUM - SERUM 2.9 mmol/L (3.5-5.1)
[2020-01-05 14:44] VITALS: BP 137/98
[2020-01-05 14:50] LABS: UDS - AMPHET NEGATIVE QUAL (NEGATIVE); UDS - BARB NEGATIVE QUAL (NEGATIVE); UDS - BENZO NEGATIVE QUAL (NEGATIVE); UDS - COCAINE NEGATIVE QUAL (NEGATIVE); UDS - OPIATE NEGATIVE QUAL (NEGATIVE); UDS - PCP NEGATIVE QUAL (NEGATIVE); UDS - THC NEGATIVE QUAL (NEGATIVE)
[2020-01-05 15:11] LABS: BILIRUBIN NEGATIVE (NEGATIVE); GLUCOSE NEGATIVE (NEGATIVE); KETONE MODERATE mg/dL (NEGATIVE); NITRITE NEGATIVE (NEGATIVE); SPECIFIC GRAVITY 1.015 (1.005-1.020); UROBILINOGEN 8 mg/dL (NORMAL)
[2020-01-05 15:12] LABS: EPITHELIAL CELLS 0-5 /hpf (0-5); WHITE CELLS - URINE 0-5 /hpf (NEGATIVE)
[2020-01-05 15:13] LABS: BACTERIA MODERATE /hpf (NEGATIVE)
[2020-01-05 15:34] VITALS: BP 142/89
--- NOTE | 2020-01-05 16:16 | NUR ---
2ND LITER OF LR HUNG AT THIS TIME. WILL GIVE A TOTAL OF 1000CC NS AND 1721 OF LACTATE RINGERS PER SEPSIS NURSE.
[2020-01-05 16:17] VITALS: BP 142/89
--- NOTE | 2020-01-05 16:27 | NUR ---
NURSE ADVISED UNABLE TO TAKE THIS PT UNTIL NURSE FOR COVID IS AVAILABLE. CHARGE NURSE ADVISED.
--- NOTE | 2020-01-05 17:19 | NUR ---
ATTEMPTED TO CALL REPORT - WILL CALL BACK IN 15MINUTES.
[2020-01-05 17:20] VITALS: BP 142/89
--- NOTE | 2020-01-05 17:40 | NUR ---
CALLING AGAIN TO GIVE REPORT TO YOLANDA MORA ADVISED SHE IS IN ROOM WITH A PATIENT.
[2020-01-05 18:03] VITALS: BP 142/89
[2020-01-05 20:00] VITALS: BP 132/70
--- NOTE | 2020-01-05 20:45 | NUR ---
PATIENT TO THE FLOOR. ASSIST X2. UNABLE TO AMBULATE. BED ALARM ON. ASSESMENT COMPLETE.
[2020-01-06 04:00] VITALS: BP 135/68
[2020-01-06 06:24] LABS: BASOPHILS 0.1 % (0-2); EOSINOPHILS 0.1 % (0-7); IMMATURE GRANULOCYTES 0.3 % (0-5); LYMPHOCYTES 9.9 % (15-50); MCH 31.3 pg (26.0-34.0); MCHC 33.2 g/dL (31.0-37.0); MEAN PLATELET VOLUME 10.6 fL (7.4-10.4); MONOCYTES 7.6 % (2-11); PLATELET COUNT 243 10x3/uL (130-400); RDW 13.2 % (11.5-14.5)
[2020-01-06 06:51] LABS: HEMATOCRIT 36.1 % (36.0-48.0); RBC 3.84 10x6/uL (4.00-5.40); WBC 10.4 10x3/uL (4.8-10.8)
[2020-01-06 07:18] LABS: ALKALINE PHOSPHATASE 62 U/L (30-120); ALT (SGPT) 15 U/L (10-68); CALCIUM 8.9 mg/dL (8.5-10.1); CARBON DIOXIDE 26.3 mmol/L (21.0-32.0); CHLORIDE - SERUM 109 mmol/L (98-107); CKMB 2.5 U/L (0.0-3.6); PHOSPHOROUS 2.7 mg/dL (2.5-4.9); PRO BNP 728 pg/mL (0-450); PROTEIN - SERUM 6.5 g/dL (6.4-8.2); SODIUM 143 mmol/L (136-145); THYROID STIMULATING HORMONE 0.32 uIU/mL (0.36-3.74); TROPONIN-I 0.017 ng/mL (0.000-0.060); UREA NITROGEN 28 mg/dL (7-18)
[2020-01-06 07:19] LABS: ALBUMIN 2.3 g/dL (3.4-5.0); CALC OSMOLALITY 291 mosm/kg (275-300); CREATINE KINASE 574 UL (21-215); CREATININE - SERUM 0.8 mg/dL (0.6-1.3); GLUCOSE 114 mg/dL (74-106); eGFR NON AFRICAN AMERICAN 74 mL/min (90-120)
[2020-01-06 09:26] VITALS: BP 144/72
[2020-01-06 13:18] VITALS: Ht 162.6 cm; Wt 81.6 kg
[2020-01-06 15:52] VITALS: BP 150/84
[2020-01-06] MEDS ORDERED: COLCRYS0.6 MG PO (17:21)
[2020-01-06] MEDS ORDERED: PROBENECID500 MG PO (17:22)
--- NOTE | 2020-01-06 19:35 | NUR ---
REPORT RECEIVED AND ROUNDING COMPLETE. LAYING IN BED IN SUPINE POSITION, HAPPY TO SEE ME AND HAPPY DEMENOR IN GENERAL. STATES NO NEEDS AT THIS TIME, ALSO STATES SHE IS FEELING BETTER BUT HAVING A HARD TIME STILL GETTING AROUND. PATIENT IS A MAX ASSIST (REPORTED BY DAY NURSE). RIGHT FOREARM PIV RUNNIGN FLUIDS AT THIS TIME. PIV SHOWS NO S/SX OF INFILTRATION, PATIENT SHOWS NO S/SX DISTRESS. CALL LIGHT WITHIN REACH AND BED IN LOWEST LOCKED POSITION.
[2020-01-06 20:00] VITALS: BP 150/77
[2020-01-07] VITALS: BP 154/78
[2020-01-07 04:00] VITALS: BP 158/82
[2020-01-07 06:21] LABS: BASOPHILS 0.1 % (0-2); EOSINOPHILS 1.3 % (0-7); HEMATOCRIT 35.2 % (36.0-48.0); HEMOGLOBIN 11.7 g/dL (12-16); IMMATURE GRANULOCYTES 0.4 % (0-5); LYMPHOCYTES 11.5 % (15-50); MCHC 33.2 g/dL (31.0-37.0); MCV 93.1 fL (80.0-100.0); MEAN PLATELET VOLUME 10.4 fL (7.4-10.4); MONOCYTES 9.4 % (2-11); NEUTROPHILS 77.3 % (40-80); PLATELET COUNT 222 10x3/uL (130-400); RBC 3.78 10x6/uL (4.00-5.40); RDW 12.8 % (11.5-14.5); WBC 9.2 10x3/uL (4.8-10.8)
[2020-01-07 06:42] LABS: ANION GAP 11.8 mmol/L (8-16); CARBON DIOXIDE 24.3 mmol/L (21.0-32.0); CREATININE - SERUM 0.9 mg/dL (0.6-1.3); MAGNESIUM - SERUM 1.7 mg/dL (1.8-2.4); PHOSPHOROUS 3.2 mg/dL (2.5-4.9); POTASSIUM - SERUM 3.1 mmol/L (3.5-5.1)
[2020-01-07 10:01] VITALS: BP 151/82
--- NOTE | 2020-01-07 13:41 | NUR ---
OT NOTE: PT COMPLETED BED POSITIONING WITH MOD A. PT COMPLETED FACE AND HAND HYGIENE WITH SETUP. [id number] THANK YOU,MARCO ASH
--- NOTE | 2020-01-07 14:01 | NUR ---
Nutrition Follow-up: Decreased appetite. Denies N/V/C/D. Had expressed interest in receiving diabetic diet info during visit yesterday. Provided education/written information on diabetic diet, as well as normal BS levels. Diet: Renal ADA PO intake: 25-50% yesterday WT: 200# (01/05) Last BM: 01/05 Labs noted: K+ 3.2, Glu 133, Ca 8.0, Mg 1.7, PO4 3.2 Meds noted: Protonix, Pepcid, NS @ 100, Humulin, electrolyte protocol -Rec liberalize to cardiac carb consistent diet; renal labs normalizing, K+ low. -Offer nutrition supplements. -Monitor wt; noted daily wts ordered. -Provided education/written information on diabetic diet, as well as normal BS levels. Questions answered; pt v/u. -RD following.
[2020-01-07 15:09] VITALS: BP 163/91
[2020-01-07 15:33] LABS: CREATINE KINASE 276 UL (21-215)
[2020-01-07 15:54] LABS: CKMB 3.1 U/L (0.0-3.6)
--- NOTE | 2020-01-07 19:58 | NUR ---
PT ATTEMPTING TO GET OOB WHEN DOING BEDSIDE SHIFT REPORT. CONFUSED AND C/O ROOM HOT AND WANTING A SHOWER. ATTEMPTED TO EXPLAIN WE WOULD GET HER A SHOWER SOON WE COULD. FINALLY PT SAID HER SISTER WAS COMMING UP AND I CONVINCED HER TO WAIT FOR HER SISTER. HAS LT SIDED WEAKNESS. LT ARM RESAERVED D/T MASCETOMY. IV TO RT FA SL. SHE HAS PULLED THE PURE WICK OUT AND PLACED IT ON HER PILLOW. WHEN THIS NURSE ATTEMPTED TO REMOVE IT PT GOT UPSET ABND SHOUTED LEAVE IT ALONE. ATTEMPTED TO EXPLAIN WHAT IT WAS FOR AND SHE CONT TO TELL THIS NURSE " I KNOW WHAT IT IS AND LEAVE IT THERE". HAD TO HAVE HER REPOSITIONED D/T BEING AT THE END OF THE BED. BED ALARM TURNED ON. SHE WAS ALSO NAKED WHEN I FIRST ENTERED THE ROOM. ABLE TO REDRESS HER. WILL CONT TO OBSERVE.
[2020-01-07 20:50] VITALS: BP 148/91
[2020-01-08 00:49] VITALS: BP 139/73
[2020-01-08 05:18] VITALS: BP 127/73
--- NOTE | 2020-01-08 07:53 | NUR ---
PT RESTING COMFORTABLY, EYES CLSOED. BREATHS EVEN REGULAR AND UNLABORED. NO SIGNS OR SYMTPOMS OF ACUTE DISTRESS NOTED AT THIS TIME. CL IN REACH, SRX2.
[2020-01-08 08:14] LABS: BASOPHILS 0.1 % (0-2); EOSINOPHILS 0.1 % (0-7); HEMATOCRIT 37.4 % (36.0-48.0); HEMOGLOBIN 12.5 g/dL (12-16); IMMATURE GRANULOCYTES 0.3 % (0-5); LYMPHOCYTES 9.8 % (15-50); MCH 31.3 pg (26.0-34.0); MCHC 33.4 g/dL (31.0-37.0); MCV 93.7 fL (80.0-100.0); MEAN PLATELET VOLUME 11.5 fL (7.4-10.4); MONOCYTES 5.3 % (2-11); NEUTROPHILS 84.4 % (40-80); PLATELET COUNT 227 10x3/uL (130-400); RBC 3.99 10x6/uL (4.00-5.40); RDW 12.8 % (11.5-14.5); WBC 7.8 10x3/uL (4.8-10.8)
[2020-01-08 08:15] VITALS: BP 104/77
[2020-01-08 08:40] LABS: CALC OSMOLALITY 284 mosm/kg (275-300); CALCIUM 9.1 mg/dL (8.5-10.1); CARBON DIOXIDE 25.2 mmol/L (21.0-32.0); CHLORIDE - SERUM 107 mmol/L (98-107); CREATININE - SERUM 0.7 mg/dL (0.6-1.3); GLUCOSE 174 mg/dL (74-106); PHOSPHOROUS 3.4 mg/dL (2.5-4.9); POTASSIUM - SERUM 3.9 mmol/L (3.5-5.1); SODIUM 139 mmol/L (136-145); UREA NITROGEN 20 mg/dL (7-18); eGFR NON AFRICAN AMERICAN 86 mL/min (90-120)
[2020-01-08 08:47] LABS: MAGNESIUM - SERUM 2.3 mg/dL (1.8-2.4)
--- NOTE | 2020-01-08 10:20 | NUR ---
PT AWAKE AND ORIENTED, LYING IN BED. SPOKE WITH DAUGHTER ON PHONE, SHE STATES THAT HER MOTHER SOUNDED "LOOPY" ALL NIGHT AND SHE DEMANDS AN EXPLINATION. TOLD HER I WAS UNABLE TO GIVE ONE AT THIS TIME BUT WOULD LOOK INTO IT SOON I WAS PROVIDED THE OPPERTUNITY. NO COMPLAITNS OR CONCERNS, PLACED ON AND OFF BEDPAN. CL INR EACH, SRX2, BED ALARM ON AND ACITVE WNL. PT IS VISABLE ON BABY MONITOR.
[2020-01-08 11:23] VITALS: BP 154/88
[2020-01-08 15:44] VITALS: BP 128/94
--- NOTE | 2020-01-08 16:42 | NUR ---
PT ARRIVED TO ROOM VIA STRETCHER. HE WAS NOTABLY STIFF AND DIFFICULT TO MOVE. UNRESPONSIVE TO QUESTIONING, MOANS WITH MOVEMENT BUT OTHERWISE DOES NOT RESPOND. V/S WNL AT THIS TIME. RESULTS FOR COVID PENDING. WAS INFORMED PT HAD PRIOR EXPOSER AROUND 2 WEEKS AGO, WAS THEN TESTED 1 WEEK AGO AND CAME BACK NEGATIVE, THEN BEGAN EXHIBITING SYMTPOMS RECENTLY. NO FAMILY AT BEDSIDE. EXPECTING A PHONE CALL FROM [facility]. CLIN [facility],SRX2,
[2020-01-08 20:00] VITALS: BP 119/88
--- NOTE | 2020-01-08 20:00 | NUR ---
RECIVED PT. PT LYING IN BED AWAKE ALERT AND ORIENTED. CONFUSED AT TIMES. TRANSFERED PT FROM ROOM 2132 TO 2133. PT TOLERATED TRANSFER WELL. NO SIGNS OR SYMTPOMS OF DSITRESS NOTED. RESPIRATIONS EVEN AND UNLABORED. ALL OF PT BELONGINGS TRANSFERED WITH PT. BED ALARM ON AND ACTIVE. PT ENCOURAGED TO CALL FOR HELP WHEN NEEDED AND WHEN GETTING IN AND OUT OF BED. BED IS IN ITS LOWEST POSITON. SIDERAILS x2. CALL LIGHT AND OTHER PERSONAL ITEMS ARE WITH IN REACH. WILL CONTINUE TO MONITOR
[2020-01-09] VITALS: BP 142/74
--- NOTE | 2020-01-09 02:54 | NUR ---
PT RESTING N BED QUIETLY WITH EYES CLOSED. EASY TO AROUSE. NO SIGNS OF DISTRESS NOTED. PT HAS NO COMPLAINTS AT THIS TIME. CALL LIGHT AND OTHER PERSONAL ITEMS WITH INREACH. BED ALARM ON AND ACTIVE. WILL CONTINUE TO MONITOR
--- NOTE | 2020-01-09 05:43 | NUR ---
I have reviewed this patient and I concur with the Shift Assessment completed by the Licensed Practical Nurse today this shift.
--- NOTE | 2020-01-09 06:37 | NUR ---
BED LINEN CHANGED INCONTINENT OF URINE. ASSIST PT WITH BED PAIN. PT TOLERATED WELL. NO SIGNS OF DISTRESS NOTED. CALL LIGHT AND OTHER PERSONAL ITEMS WITH IN REACH. WILL CONTINUE TO MONITOR
[2020-01-09 07:17] LABS: HEMATOCRIT 36.3 % (36.0-48.0); HEMOGLOBIN 12.2 g/dL (12-16); LYMPHOCYTES 10.3 % (15-50); MCHC 33.6 g/dL (31.0-37.0); MCV 92.1 fL (80.0-100.0); MEAN PLATELET VOLUME 10.6 fL (7.4-10.4); NEUTROPHILS 82.4 % (40-80); RBC 3.94 10x6/uL (4.00-5.40); RDW 12.6 % (11.5-14.5); WBC 8.7 10x3/uL (4.8-10.8)
[2020-01-09 07:20] LABS: PLATELET COUNT 292 10x3/uL (130-400)
[2020-01-09 07:36] LABS: CALC OSMOLALITY 283 mosm/kg (275-300); CALCIUM 9.1 mg/dL (8.5-10.1); CARBON DIOXIDE 26.6 mmol/L (21.0-32.0); CHLORIDE - SERUM 106 mmol/L (98-107); CREATINE KINASE 92 UL (21-215); CREATININE - SERUM 0.7 mg/dL (0.6-1.3); GLUCOSE 141 mg/dL (74-106); MAGNESIUM - SERUM 2.1 mg/dL (1.8-2.4); PHOSPHOROUS 3.8 mg/dL (2.5-4.9); POTASSIUM - SERUM 3.4 mmol/L (3.5-5.1); SODIUM 140 mmol/L (136-145); UREA NITROGEN 22 mg/dL (7-18); eGFR NON AFRICAN AMERICAN 86 mL/min (90-120)
[2020-01-09 08:02] VITALS: BP 118/77
--- NOTE | 2020-01-09 08:23 | NUR ---
UP BED AT THIS TIME AWAKE. CONTINENT VOID AND BOWEL MOVEMENT NOTED. PT PROVIDED OWN ABUNDIO CARE. ASSISTED VIA MINIMAL ASSIST TO BED FROM BEDSIDE TOILET. NO ACUTE DISTERSS NOTED. WILL CONTINUE PLAN OF CARE.
--- NOTE | 2020-01-09 09:08 | NUR ---
UP IN BED AWAKE AT THIS TIME EATING BREAKFAST. DENIES ANY NEEDS. WILL CONTINUE PLAN OF CARE.
--- NOTE | 2020-01-09 11:29 | NUR ---
SITTING UP IN BED WATCHING TV AT THIS TIME. DENIES ANY NEEDS. NO ACUTE DISTRESS NOTED. WILL CONTINUE PLAN OF CARE.
[2020-01-09 11:39] VITALS: BP 128/81
[2020-01-09] MEDS ORDERED: FEXOFENADINE HC60 MG PO (13:09)
[2020-01-09] MEDS ORDERED: MUCINEX600 MG PO (13:09)
[2020-01-09] MEDS ORDERED: TESSALON PERLE100 MG PO (13:09)
--- NOTE | 2020-01-09 13:26 | NUR ---
NOTED ORDER FOR PT TO BE DISCHARGED HOME. CALLED PTS EMERGENCY CONTACT AND RECIEVED A [employer] MESSAGE THAT STATES "WELCOME TO [facility], THE NUMBER YOU HAVE DIALED HAS CALLING RESTRICTIONS WHICH COMPLETES THE END OF THIS CALL." WILL CONTINUE TO CONTACT PTS FAMILY. PT DENIES ANY NEEDS. WILL CONTINUE PLAN OF CARE.
--- NOTE | 2020-01-09 14:05 | NUR ---
SPOKE WITH PTS DAUGHTER ZOHREH, NOTIFIED OF PTS DISCHARGE. SHE STATED SHE WOULD BE BY AT 3 TO PICK PT UP. NO ACUTE DISTRESS NOTED. WILL CONTINUE PLAN OF CARE.
--- NOTE | 2020-01-09 16:30 | NUR ---
DISCHARGE PAPERWORK REVIEWED WITH PT AND PTS DAUGHTER. ALL QUESTIONS AND CONCERNS ADDRESSED. PT AND PTS DAUGHTER STATES THEY WILL BE ABLE TO OBTAIN MEDICATIONS AND UNDERSTAND DR JIANG OFFICE TO CALL FOR APPT AND FOR CT ABD/PELVIS IN 3 MONTHS. PT DISCHARGED HOME VIA PERSONAL VEHICLE. ASSISTED TO VEHICLE VIA WHEELCHAIR BY HOSPITAL STAFF. PT LEFT WITH ALL PERSONAL ITEMS, DISCHARGE PAPERWORK. NO ACUTE DISTERSS NOTED. NO FURTHER ACTIONS.
--- NOTE | 2020-01-09 21:57 | MORECARE ---
CASE MANAGEMENT DISCHARGE SUMMARY PATIENT: VENITA CALDWELL UNIT: [id number] ADM DATE: 01/05/20 AGE: 79 : 44 SEX: F ROOM/BED: D.6451 AUTHOR: PETE,DOC PHYSICIAN: REFERRING PHYSICIAN: DANTE SHABAZZ MD DATE OF SERVICE: 01/09/20 Discharge Plan Patient Name: VENITA CALDWELL Facility: [facility]:[place] : 1940 Planned Disposition: Home Anticipated Discharge Date: Discharge Date: 01/09/2020 Expected LOS: Initial Reviewer: [email or web address] Initial Review Date: 01/05/2020 Generated: 01/09/20 10:56 pm Comments DCP- Discharge Planning Updated by [email or web address]: Ary Kaur on 01/09/20 8:[address] Patient Name: VENITA CALDWELL Admission Status: ER Accout number: [id number] Admission Date: 01-05-2020 : 1940 Admission Diagnosis:ACUTE KIDNEY FAILURE, UNSPECIFIED Attending: ALEXANDRO Current LOS: 4 Anticipated DC Date: Planned Disposition: Home Primary Insurance: [email or web address] Discharge Planning Comments: CM met with patient to complete initial dc planning assessment. CM educated patient on the CM role and verbal consent given by patient to complete assessment. Patient lives at home alone. Patient is independent. At discharge patient plans to return home and feels this is a safe discharge. CM discussed availability of home health, rehab services, and medical equipment. Patient will have family to transport home. Patient denied known discharge needs at this time. D/C IMM signed 01/09/20 @ 1425. CM will continue to follow and will assist as needed with dc plans/needs. Consumer Attorney: Ary Kaur DCPIA - Discharge Planning Initial Assessment Updated by [email or web address]: Ary Kaur on 01/09/20 9:54 pm * Is the patient Alert and Oriented? Yes * How many steps to enter\exit or inside your home? * PCP [facility] * [facility] - MAIL ORDER * Preadmission Environment Home Alone * ADLs Independent * Equipment Walker * Other Equipment ROLLATER * List name and contact numbers for known caregivers / representatives who currently or will assist patient after discharge: ABIEL KERR - DAUGHTER - [phone] PAULA GODFREY - SISTER- [phone] * Verbal permission to speak to the caregivers and representatives has been obtained from the patient. Yes * Community resources currently utilized None * Additional services required to return to the preadmission environment? No * Can the patient safely return to the preadmission environment? Yes * Has this patient been hospitalized within the prior 30 days at any hospital? No Coverage Notice Reviewer: [email or web address] Brenda Kaur Notice Issued Date-Time: 01/09/2020 14:25 Notice Type: IM Discharge Notice Notice Delivered To: Patient Relationship to Patient: Self Special Service Officer Name: Delivery Method: HAND - Hand Delivered Svetlana Days: Prior Verbal Notification: Recipient Understood Notice: Yes Recipient Signature: Yes Med Rec Note Co-signed by Attending: Coverage Notice Comment: Patient Name: VENITA CALDWELL Page [phone] at 2157 All edits/amendments must be made on the electronic document DICTATION DATE: 01/09/202155 MEASUREMENT AND SENSING TECHNICIAN: ALLEY 01/09/202155 RPT#: [id number] DC DATE:01/09/20 STATUS: DIS IN [facility] [address] [place] [address] END OF REPORT
== END 2020-01-09 16:44 | disposition home or self-care (01) | DRG 682 ==
LOC: D.ER 11:45 → D.M2 15:25 → D.SDCHOLD 01-07 14:52 → D.M2 01-07 14:53
PROVIDERS: Family Medicine; ADMIT Family Medicine; ATTEND Family Medicine
DX: N17.9 Acute kidney failure, unspecified (principal); G93.41 Metabolic encephalopathy; M62.82 Rhabdomyolysis; N39.0 Urinary tract infection, site not specified; E11.65 Type 2 diabetes mellitus with hyperglycemia; E87.6 Hypokalemia; E80.6 Other disorders of bilirubin metabolism; E78.5 Hyperlipidemia, unspecified; I25.10 Atherosclerotic heart disease of native coronary artery without angina pectoris; I10 Essential (primary) hypertension